=== PATIENT | male | born 1965 ===

== ENCOUNTER 2018-08-21 18:27 | Emergency (ER) | payer OTHER ==
[~2018-08-21] VITALS: Ht 182.9 cm; Wt 111.1 kg
[2018-08-21 20:00] VITALS: BP 139/76
[2018-08-21] MEDS ORDERED: HYDROMORPHONE INJ 2 MG/ML DISP.SYRIN IV ONE (20:00)
[2018-08-21] MEDS ORDERED: IV NS 0.9% 1,000 ML BAG IV ONE (20:00)
[2018-08-21] MEDS ORDERED: ONDANSETRON HCL/PF 4 MG/2 ML VIAL ONE (20:00)
[2018-08-21] MEDS ORDERED: HYDROMORPHONE 1 MG/1 ML DISP.SYRIN ONE (20:00)
[2018-08-21] MEDS ORDERED: ONDANSETRON HCL/PF 4 MG/2 ML VIAL IVP ONE (20:00)
--- NOTE | 2018-08-21 20:00 | NUR ---
Pt came in for abdominal pain, 5/10 on scale, describes it as sharp, intermittent, which he states has been chronic in nature. He is A, O/4, on RA, able to move all extremities without difficulty.
[2018-08-21 20:04] LABS: BASOPHILS # (AUTO) 0.1 /CMM (0.0-0.2); BASOPHILS % (AUTO) 0.6 % (0.0-2.0); EOSINOPHILS % (AUTO) 2.2 % (0.0-6.0); HEMATOCRIT 41 % (39-51); LYMPHOCYTES % (AUTO) 23.1 % (20.0-44.0); MEAN CORPUSCULAR HGB CONC 34 g/dl (31.0-36.0); MEAN CORPUSCULAR VOLUME 92 fL (80-96); MONOCYTES # (AUTO) 0.6 /CMM (0.1-1.30); MONOCYTES % (AUTO) 7.3 % (2.0-12.0); NEUTROPHILS # (AUTO) 5.8 /CMM (1.8-8.9); NEUTROPHILS % (AUTO) 66.8 % (43.0-81.0); PLATELET COUNT (AUTO) 155 /CMM (150-450); RED BLOOD CELL COUNT(AUTO) 4.49 MIL/uL (4.5-6.0); WHITE BLOOD COUNT (AUTO) 8.6 K/uL (4.3-11.0)
[2018-08-21 20:06] LABS: APPEARANCE,URINE Clear (CLEAR); BILIRUBIN,URINE Negative (NEGATIVE); BLOOD, URINE Negative Ery/uL (NEGATIVE); COLOR,URINE Yellow (YELLOW); KETONES,URINE Trace (NEGATIVE); LEUKOCYTE ESTERASE ,URINE Negative (NEGATIVE); NITRITE, URINE Negative (NEGATIVE); PROTEIN,URINE Negative (NEGATIVE); UGLUCOSE Negative (NEGATIVE); UROBILINOGEN,URINE 0.2 EU/dL (0.2)
[2018-08-21 20:26] LABS: ALBUMIN 4.1 g/dL (3.4-5.0); BILIRUBIN,DIRECT 0.1 mg/dL (0.0-0.2); BILIRUBIN,TOTAL 0.7 mg/dL (0.2-1.0); CALCIUM, SERUM 9.1 mg/dL (8.5-10.1); CREATININE 0.9 mg/dL (0.6-1.3); POTASSIUM 3.9 mmol/L (3.5-5.1); TOTAL PROTEIN, SERUM 8.4 g/dL (6.4-8.2)
--- NOTE | 2018-08-21 21:11 | NUR ---
Pt feels better, abdominal pain has subsided, no distress noted. Awaiting to be discharged
--- NOTE | 2018-08-21 21:18 | NUR ---
Patient discharged to home in stable condition. Written and verbal after care instructions and prescription given. Patient verbalizes understanding of instruction.IV removed. Catheter intact and site benign. Pressure and 4x4 applied to site. No bleeding noted. Pt ambulatory with a steady gait
== END 2018-08-21 21:18 | disposition home or self-care (01) ==
LOC: ER 18:29
DX: R10.11 Right upper quadrant pain (principal); Z86.19 Personal history of other infectious and parasitic diseases
CPT/HCPCS: 36415; 76705-TC; 80048-TC; 80076-TC; 81000-TC; 83690-TC; 85025-TC; J1170; J2405; J7030